=== PATIENT | female | born 1995 | race Caucasian/White ===

== ENCOUNTER 2017-02-18 16:25 | Emergency (ER) | payer OTHER ==
[~2017-02-18] VITALS: Ht 162.6 cm; Wt 78.0 kg
[2017-02-18] MEDS ORDERED: MECL25CH PO (16:37)
[2017-02-18] MEDS ORDERED: CELE20TA PO (16:37)
[2017-02-18] MEDS ORDERED: MECLIZINE 25 MG TABLET PO ONE (17:00)
[2017-02-18] MEDS ORDERED: NS 1,000 ML IV ONE (17:00)
[2017-02-18 17:28] LABS: METHADONE URINE NEGATIVE (NEGATIVE)
[2017-02-18 17:30] LABS: BASO % 0.5 % (0.0-1.0); EOS # 0.2 K/mm3 (0.0-0.50); EOS % 2.1 % (0.0-3.0); LARGE UNSTAINED CELL # 0.1 K/mm3 (0.0-0.4); LARGE UNSTAINED CELL % 1.4 % (0.0-4.0); LYMPH # 2.4 K/mm3 (1.5-6.5); LYMPH % 29.1 % (24.0-44.0); MEAN CORPUSCULAR HGB CONC 32.2 g/dl (32.0-36.5); MONO # 0.3 K/mm3 (0.0-0.8); MONO % 3.4 % (0.0-5.0); NEUTROPHILS # 5.3 K/mm3 (1.8-7.7); NEUTROPHILS % 63.5 % (36.0-66.0); PLATELET COUNT, AUTOMATED 303 k/mm3 (150-450); RED CELL DISTRIBUTION WIDTH 13.1 % (11.5-14.5); WHITE BLOOD COUNT 8.3 K/mm3 (4.0-10.0)
[2017-02-18 17:36] LABS: INR 0.94
[2017-02-18 17:44] LABS: CONTROL LINE HCG INT CTR LINE PRESENT
[2017-02-18 17:58] LABS: GLUCOSE, FASTING 79 MG/DL (70-105)
[2017-02-18 18:19] LABS: ANION GAP 8 MEQ/L (8-16); BLOOD UREA NITROGEN 10 MG/DL (7-18); CALCIUM LEVEL 9.1 MG/DL (8.5-10.1); CARBON DIOXIDE LEVEL 25 MEQ/L (21-32); CHLORIDE LEVEL 106 MEQ/L (98-107); POTASSIUM SERUM 4.2 MEQ/L (3.5-5.1); SODIUM LEVEL 139 MEQ/L (136-145)
--- NOTE | 2017-02-18 18:40 | REPUSA ---
CLINICAL HISTORY: Syncope TECHNIQUE: Head CT without contrast COMPARISON: No study for comparison is available at the time of interpretation. Brain: No intracranial hemorrhage, hydrocephalus, acute parenchymal edema or evident mass. Calvarium: Unremarkable. Sinuses (partially visualized): Clear. IMPRESSION: No acute intracranial findings.
[2017-02-18 18:58] VITALS: BP 126/74
--- NOTE | 2017-02-19 08:57 | ECGEPIP ---
Stationary ECG Study [facility] - ED Test Date: 2017-02-18 Pat Name: GUSTAVO BO Department: Room: - Gender: F Car Park Attendant: kiel : 1995 Requested By: JUVENAL GOLDSTEIN Order Number: [id number] Reading MD: Karon Monet Measurements Intervals [place] Rate: 68 P: 41 [place]: 125 QRS: 26 QRSD: 98 T: 21 QT: 376 QTc: 401 Interpretive Statements SINUS RHYTHM NO PRIOR FOR COMPARISON Electronically Signed On 02-19-2017 8:57:19 EDT by Karon Monet
== END 2017-02-18 19:01 | disposition home or self-care (01) ==
LOC: M ED 17:06
DX: R42 Dizziness and giddiness (principal); R11.0 Nausea; Z79.899 Other long term (current) drug therapy
CPT/HCPCS: 70450; 80048; 80306; 81001; 84443; 84703; 85025; 85610; 93005; 93041; 96360; 99284; G0480

== ENCOUNTER → 2018-08-25 | Outpatient (REF) | payer OTHER ==
[2018-08-25 18:32] LABS: FREE T4 0.98 NG/DL (0.76-1.46); PROLACTIN 40.6 NG/ML; TESTOSTERONE 28 NG/DL (14-76)
[2018-08-25 19:10] LABS: HIV 1&2 SCREEN CENTAUR NEGATIVE (NEGATIVE)
[2018-08-27 10:55] LABS: HEPATITIS B SURFACE ANTIGEN NEGATIVE (NEGATIVE)
[2018-08-27 11:24] LABS: HEPATITIS C VIRUS ABY INDEX 0.1 INDEX (<0.8)
[2018-08-28 14:13] LABS: DEHYDROEPIANDROSTERONE UNCONJ 408 ng/dL (31-701)
== END ==
LOC: M LABDRAW1 12:01
DX: N92.6 Irregular menstruation, unspecified (principal); Z11.3 Encounter for screening for infections with a predominantly sexual mode of transmission
CPT/HCPCS: 84146

== ENCOUNTER 2018-12-20 23:38 | Emergency (ER) | payer BC ==
[~2018-12-20] VITALS: Ht 165.1 cm; Wt 80.0 kg
[~2018-12-20 23:38] MED LIST: CELE20TA PO; MECL1CHW PO
[2018-12-20] MEDS ORDERED: DULO1CAP2 (23:45)
[2018-12-20] MEDS ORDERED: MELO15TA28 (23:45)
[2018-12-21] MEDS ORDERED: NUVAMIS2 PV (02:28)
[2018-12-21] MEDS ORDERED: NAPR-837 PO (06:35)
[2018-12-21] MEDS ORDERED: CLIN150C14 PO (06:35)
[2018-12-21] MEDS ORDERED: CLINDAMYCIN 150 MG CAP PO ONE (06:45)
[2018-12-21] MEDS ORDERED: NAPROXEN 250 MG TAB PO ONE (06:45)
[2018-12-21 06:52] VITALS: BP 118/55
== END 2018-12-21 06:54 | disposition home or self-care (01) ==
LOC: M ED 23:38
DX: L05.91 Pilonidal cyst without abscess (principal); F41.9 Anxiety disorder, unspecified; F32.9 Major depressive disorder, single episode, unspecified; Z79.3 Long term (current) use of hormonal contraceptives; Z79.899 Other long term (current) drug therapy

== ENCOUNTER → 2019-04-04 | Outpatient (REF) | payer BC ==
[~2019-04-04] MED LIST changes: +CLIN150C14 PO; +DULO1CAP5; +MELO15TA28; +NAPR-837 PO; +NUVAMIS2 PV
== END ==
LOC: M LABDRAW1 11:52
PROVIDERS: ATTEND Obstetrics & Gynecology
DX: N92.6 Irregular menstruation, unspecified (principal); E22.1 Hyperprolactinemia

== ENCOUNTER → 2019-07-20 | Outpatient (REF) | payer BC ==
[2019-07-20 20:38] LABS: CLOSTRIDIUM DIFFICILE PCR NEGATIVE (NEGATIVE)
== END ==
LOC: M LAB REF 17:11
PROVIDERS: ATTEND Internal Medicine Gastroenterology
DX: R19.7 Diarrhea, unspecified (principal)

== ENCOUNTER 2019-08-26 10:39 | Day surgery (SDC) | payer BC ==
[~2019-08-26] VITALS: Ht 165.1 cm; Wt 86.2 kg
[~2019-08-26 10:39] MED LIST changes: +AMOX875T PO; +JUNETAB PO; +NS 1,000 ML IV ONE
[2019-08-26] MEDS ORDERED: PROPOFOL 200 MG/20 ML VIAL As Ordered ONE ×2 (12:04→12:05)
[2019-08-26] MEDS ORDERED: LIDOCAINE 2% INJ 100 MG/5 ML SDV (FOR ANES.) As Ordered ONE (12:05)
--- NOTE | 2019-08-26 12:33 | ROOR ---
Patient Name: Georgette Morrow Procedure Date: 08/26/2019 11:50 AM Date of : 1995 Age: 24 Room: [facility] Gender: Female Note Status: Finalized Procedure: Upper GI endoscopy Indications: Globus sensation, Nausea with vomiting, Persistent vomiting of unknown cause Providers: Storm Wood MD Referring MD: BEATRIZ MACARIO Requesting Provider: Medicines: Monitored Anesthesia Care Complications: No immediate complications. Procedure: Pre-Anesthesia Assessment: - Prior to the procedure, a History and Physical was performed, and patient medications and allergies were reviewed. The patient is competent. The risks and benefits of the procedure and the sedation options and risks were discussed with the patient. All questions were answered and informed consent was obtained. Patient identification and proposed procedure were verified by the physician, the nurse and the anesthesiologist in the procedure room. Mental Status Examination: alert and oriented. Airway Examination: normal oropharyngeal airway and neck mobility. Respiratory Examination: clear to auscultation. CV Examination: normal. Prophylactic Antibiotics: The patient does not require prophylactic antibiotics. Prior Anticoagulants: The patient has taken no previous anticoagulant or antiplatelet agents. ASA Grade Assessment: II - A patient with mild systemic disease. After reviewing the risks and benefits, the patient was deemed in satisfactory condition to undergo the procedure. The anesthesia plan was to use monitored anesthesia care (MAC). Immediately prior to administration of medications, the patient was re-assessed for adequacy to receive sedatives. The heart rate, respiratory rate, oxygen saturations, blood pressure, adequacy of pulmonary ventilation, and response to care were monitored throughout the procedure. The physical status of the patient was re-assessed after the procedure. The Endoscope was introduced through the mouth, and advanced to the second part of duodenum. The upper GI endoscopy was accomplished without difficulty. The patient tolerated the procedure well. Findings: The examined esophagus was normal. Biopsies were obtained from the proximal and distal esophagus with cold forceps for histology of suspected eosinophilic esophagitis. Verification of patient identification for the specimen was done by the physician and nurse using the patient's name, date and medical record number. Estimated blood loss was minimal. Scattered minimal inflammation characterized by erythema and granularity was found in the gastric antrum. Biopsies were taken with a cold forceps for Helicobacter pylori testing. The duodenal bulb and second portion of the duodenum were normal. Biopsies for histology were taken with a cold forceps for evaluation of celiac disease. Impression: - Normal esophagus. Biopsied. - Gastritis. Biopsied. - Normal duodenal bulb and second portion of the duodenum. Biopsied. Recommendation: - Patient has a contact number available for emergencies. The signs and symptoms of potential delayed complications were discussed with the patient. Return to normal activities tomorrow. Written discharge instructions were provided to the patient. - Resume previous diet. - Continue present medications. - Await pathology results. - Telephone GI clinic for pathology results in 2 weeks. - Return to referring physician. Storm Wood MD Storm Wood MD 08/26/2019 12:32:28 PM Electronically signed by Storm Wood MD Number of Addenda: 0 Note Initiated On: 08/26/2019 11:50 AM Estimated Blood Loss: Estimated blood loss was minimal.
--- NOTE | 2019-08-26 12:47 | ROOR ---
Patient Name: Georgette Morrow Procedure Date: 08/26/2019 11:51 AM Date of : 1995 Age: 24 Room: [facility] Gender: Female Note Status: Finalized Procedure: Colonoscopy Indications: Change in bowel habits Providers: Storm Wood MD Referring MD: BEATRIZ MACARIO Requesting Provider: Medicines: Monitored Anesthesia Care Complications: No immediate complications. Procedure: Pre-Anesthesia Assessment: - Prior to the procedure, a History and Physical was performed, and patient medications and allergies were reviewed. The patient is competent. The risks and benefits of the procedure and the sedation options and risks were discussed with the patient. All questions were answered and informed consent was obtained. Patient identification and proposed procedure were verified by the physician, the nurse and the anesthesiologist in the procedure room. Mental Status Examination: alert and oriented. Airway Examination: normal oropharyngeal airway and neck mobility. Respiratory Examination: clear to auscultation. CV Examination: normal. Prophylactic Antibiotics: The patient does not require prophylactic antibiotics. Prior Anticoagulants: The patient has taken no previous anticoagulant or antiplatelet agents. ASA Grade Assessment: III - A patient with severe systemic disease. After reviewing the risks and benefits, the patient was deemed in satisfactory condition to undergo the procedure. The anesthesia plan was to use monitored anesthesia care (MAC). Immediately prior to administration of medications, the patient was re-assessed for adequacy to receive sedatives. The heart rate, respiratory rate, oxygen saturations, blood pressure, adequacy of pulmonary ventilation, and response to care were monitored throughout the procedure. The physical status of the patient was re-assessed after the procedure. The Colonoscope was introduced through the anus and advanced to the terminal ileum, with identification of the appendiceal orifice and IC valve. The colonoscopy was performed without difficulty. The patient tolerated the procedure well. The quality of the bowel preparation was good. The terminal ileum, ileocecal valve, appendiceal orifice, and rectum were photographed. Scope insertion time was 3 minutes. Scope withdrawal time was 8 minutes. The total duration of the procedure was 12 minutes. Findings: The perianal and digital rectal examinations were normal. The terminal ileum appeared normal. Scattered mild inflammation characterized by erythema, granularity and loss of vascularity was found in the recto-sigmoid colon. Biopsies for histology were taken with a cold forceps from the right colon, left colon and rectosigmoid colon for evaluation of microscopic colitis. Verification of patient identification for the specimen was done by the physician and nurse using the patient's name, date and medical record number. Estimated blood loss was minimal. Retroflexion in the rectum was not performed due to anatomy. No other significant abnormalities were identified in a careful examination of the remainder of the colon. Impression: - The examined portion of the ileum was normal. - Scattered mild inflammation was found in the recto-sigmoid colon. Biopsied. Recommendation: - Patient has a contact number available for emergencies. The signs and symptoms of potential delayed complications were discussed with the patient. Return to normal activities tomorrow. Written discharge instructions were provided to the patient. - Resume previous diet. - Continue present medications. - Await pathology results. - Repeat colonoscopy at age 52 for screening purposes. - Telephone GI clinic for pathology results in 2 weeks. - Return to primary care physician. Storm Wood MD Storm Wood MD 08/26/2019 12:47:10 PM Electronically signed by Storm Wood MD Number of Addenda: 0 Note Initiated On: 08/26/2019 11:51 AM Estimated Blood Loss: Estimated blood loss was minimal.
[2019-08-26 13:08] VITALS: BP 130/78
== END 2019-08-26 13:07 | disposition home or self-care (01) ==
LOC: M OPP 10:39
PROVIDERS: ATTEND Internal Medicine Gastroenterology
DX: K52.9 Noninfective gastroenteritis and colitis, unspecified (principal); R19.4 Change in bowel habit; K29.70 Gastritis, unspecified, without bleeding; R11.2 Nausea with vomiting, unspecified; R11.10 Vomiting, unspecified; Z79.899 Other long term (current) drug therapy

== ENCOUNTER 2020-04-17 02:49 | Emergency (ER) | payer BC ==
[~2020-04-17 02:49] MED LIST changes: -NS 1,000 ML IV ONE
[2020-04-17] MEDS ORDERED: HYOSCYAMINE SULFATE 0.125 MG SUBL TABLET ONE (07:00)
[2020-05-26 11:35] LABS: BASO # 0.1 10^3/uL (0.0-0.2); BASO % 0.8 % (0.0-1.0); EOS # 0.3 10^3/uL (0.0-0.5); EOS % 4.2 % (0.0-3.0); HEMOGLOBIN 11.9 g/dl (12.0-15.5); LYMPH # 2.5 10^3/uL (1.5-5.0); LYMPH % 34.1 % (24.0-44.0); MEAN CORPUSCULAR HEMOGLOBIN 26.2 pg (27.0-33.0); MEAN CORPUSCULAR HGB CONC 31.3 g/dl (32.0-36.5); MEAN CORPUSCULAR VOLUME 83.5 fl (80.0-96.0); MONO # 0.4 10^3/uL (0.0-0.8); MONO % 5.4 % (0.0-5.0); NEUTROPHILS # 4.1 10^3/uL (1.5-8.5); PLATELET COUNT, AUTOMATED 389 10^3/uL (150-450); RED BLOOD COUNT 4.55 10^6/uL (4.00-5.40); WHITE BLOOD COUNT 7.4 10^3/uL (4.0-10.0)
[2020-07-01 08:27] LABS: ALBUMIN 3.9 GM/DL (3.2-5.2); ALT/SGPT 24 U/L (12-78); BILIRUBIN,DIRECT < 0.1 MG/DL (0.0-0.2); BILIRUBIN,TOTAL 0.1 MG/DL (0.2-1.0); BLOOD UREA NITROGEN 8 MG/DL (7-18); CARBON DIOXIDE LEVEL 24 MEQ/L (21-32); CHLORIDE LEVEL 109 MEQ/L (98-107); CREATININE FOR GFR 0.86 MG/DL (0.55-1.30); GLOMERULAR FILTRATION RATE > 60.0 (>60); GLUCOSE, FASTING 97 MG/DL (70-100); HCG, SERUM QUALITATIVE NEGATIVE (NEGATIVE); LIPASE 79 U/L (73-393); SODIUM LEVEL 141 MEQ/L (136-145)
== END 2020-04-17 08:10 | disposition home or self-care (01) ==
LOC: M ED 02:49
DX: K80.70 Calculus of gallbladder and bile duct without cholecystitis without obstruction (principal); Z79.899 Other long term (current) drug therapy

== ENCOUNTER 2020-05-14 09:31 | Day surgery (SDC) | payer BC ==
[~2020-05-14] VITALS: Ht 165.1 cm; Wt 96.6 kg
[~2020-05-14 09:31] MED LIST changes: +LIDOCAINE 1% MDV 20ML VIAL SQ PRN
[2020-05-14] MEDS ORDERED: HYOSPOW (10:05)
[2020-05-14] MEDS ORDERED: LR 1,000 ML IV ONE (11:00)
[2020-05-14] MEDS ORDERED: dexameTHASONE 4 MG/ML 1ML VIAL (J1100 PER 1MG) As Ordered ONE (11:21)
[2020-05-14] MEDS ORDERED: ACETAMINOPHEN 1000MG 100ML IV BTL (OFIRMEV) (J0131 PER 10MG) As Ordered ONE (11:21)
[2020-05-14] MEDS ORDERED: ROCURONIUM BROMIDE 50 MG/5 ML VIAL As Ordered ONE ×2 (11:21→12:24)
[2020-05-14] MEDS ORDERED: KETOROLAC 60MG 2ML VIAL As Ordered ONE (11:21)
[2020-05-14] MEDS ORDERED: ONDANSETRON 4MG/2ML VIAL As Ordered ONE ×2 (11:21→13:33)
[2020-05-14] MEDS ORDERED: LIDOCAINE 2% 100MG/5ML SDV (FOR ANES.) As Ordered ONE (11:21)
[2020-05-14] MEDS ORDERED: propofoL 200 MG/20 ML VIAL As Ordered ONE ×2 (11:21→12:09)
[2020-05-14] MEDS ORDERED: MIDAZOLAM INJ 2MG/2ML VIAL (J2250 PER 1MG) As Ordered ONE (11:22)
[2020-05-14] MEDS ORDERED: fentaNYL 100 MCG/2 ML INJECTION (J3010) As Ordered ONE (11:22)
[2020-05-14] MEDS ORDERED: BUPIVACAINE/EPIN 0.25% 30 ML VIAL As Ordered ONE (11:27)
[2020-05-14] MEDS ORDERED: SUGAMMADEX SODIUM 500 MG/5 ML VIAL (BRIDION) As Ordered ONE (12:24)
[2020-05-14] MEDS: ONDANSETRON 4MG/2ML VIAL IV PRN ×2 (13:35→13:45)
[2020-05-14] MEDS ORDERED: fentaNYL 100 MCG/2 ML INJECTION (J3010) IV PRN (13:45)
[2020-05-14] MEDS ORDERED: LR 1,000 ML IV SCH (13:45)
[2020-05-14] MEDS ORDERED: NORCO, ANEXSIA 5/325MG TABLET (HYDROcodone/ACETAMINOPHEN) PO PRN ×2 (13:45→14:00)
[2020-05-14] MEDS: oxyCODONE 5MG TAB PO PRN ×2 (13:46→14:24)
[2020-05-14] MEDS: HYDROMORPHONE HCL 0.5 MG/ 0.5 ML SYRINGE (J1170 PER 1) IV PRN ×2 (14:05→14:11)
[2020-05-14 15:30] VITALS: BP 135/66
--- NOTE | 2020-06-28 08:26 | RO ---
DATE OF OPERATION: 05/14/2020 PREOPERATIVE DIAGNOSIS: Symptomatic cholelithiasis. POSTOPERATIVE DIAGNOSIS: Symptomatic cholelithiasis. PROCEDURE: Robotic cholecystectomy. SURGEON: Maxi Hansen DO POWER SEWING MACHINE OPERATOR: Margret Bhatia ANESTHESIA: General. ESTIMATED BLOOD LOSS: 5. COMPLICATIONS: None. INDICATIONS FOR PROCEDURE: The patient is a 25-year-old female who presents with right upper quadrant pain and found to have symptomatic cholelithiasis. Recommendation was to proceed with a robotic cholecystectomy. Risks and benefits of the procedure not limited to but including bleeding, infection, hernia formation, damage to surrounding structures and need for further surgery were discussed in detail with the patient. Informed consent was obtained and procedure was planned. DESCRIPTION OF PROCEDURE: The patient was brought back to operating room 7. After sufficient sedation, the abdomen was sterilely prepped and draped. Next, timeout was done to confirm proper patient and proper procedure. Following that, an 8 mm incision was made in the left upper quadrant, and the Veress needle was inserted. The abdomen was insufflated to 15 mmHg. Next the Veress needle was removed. An 8-mm Optiview port was used to gain access to the abdomen. Once the abdomen was entered, three more ports were placed across the right upper quadrant. Next, the robot was connected to the ports from the console, and the fundus of the gallbladder was elevated up towards the right shoulder. The cystic duct and cystic artery were carefully dissected free using a combination of blunt and sharp dissection. Once they were both clearly identified, they were both doubly clipped and cut. The gallbladder was then dissected free from the gallbladder fossa using electrocautery. Once the gallbladder was removed, it was placed inside of a 5-mm Endo Catch bag and brought out through the right lateral port site. Once the gallbladder was out, the fascia and the peritoneum at the right lateral port side was closed intraperitoneally using a 2-0 V-Loc suture. Once that was completed, the abdomen was desufflated. Skin incisions were closed with 4-0 Vicryl subcuticular sutures. The abdomen was cleaned and dried. Steri- Strips, 4x4 and tape were applied. CHARITY
== END 2020-05-14 15:36 | disposition home or self-care (01) ==
LOC: M SDC 09:31
PROVIDERS: ATTEND Surgery
DX: K80.10 Calculus of gallbladder with chronic cholecystitis without obstruction (principal); F41.9 Anxiety disorder, unspecified; F32.9 Major depressive disorder, single episode, unspecified
CPT/HCPCS: 47562; 81025; 88304; J0131; J1100; J1170; J1885; J2250; J2405; J3010

== ENCOUNTER → 2021-12-26 | Outpatient (REF) | payer BC ==
[~2021-12-26] MED LIST changes: -CLIN150C14 PO; +CLIN150C17 PO; +HYOSPOW; -LIDOCAINE 1% MDV 20ML VIAL SQ PRN
== END ==
LOC: M LAB REF 11:55
PROVIDERS: ATTEND Physician Assistant
DX: R05.9 Cough, unspecified (principal); R50.9 Fever, unspecified

== ENCOUNTER 2022-03-19 15:59 | Emergency (ER) | payer BC, MEDICAID ==
[~2022-03-19] VITALS: Ht 165.1 cm; Wt 93.2 kg
[2022-03-19] MEDS ORDERED: DULO1CAP5 (16:17)
[2022-03-19] MEDS ORDERED: CEPH500C PO (16:17)
[2022-03-19] MEDS ORDERED: BUTACAP78 PO (16:17)
[2022-03-19] MEDS ORDERED: ONDANSETRON 4MG ORAL DISINTEGRATING TAB PO ONE (17:25)
[2022-03-19] MEDS ORDERED: AUGMENTIN 875 MG TAB PO ONE (17:25)
[2022-03-19] MEDS ORDERED: MORPHINE 4 MG/ML 1ML VIAL/SYRINGE IM ONE (17:25)
[2022-03-19] MEDS ORDERED: LIDOCAINE 1% MDV 20ML VIAL SC ONE (17:25)
[2022-03-19] MEDS ORDERED: AMOX875T2 PO (18:10)
[2022-03-19] MEDS ORDERED: HYDR-3713 PO (18:10)
[2022-03-19 18:25] VITALS: BP 133/78
== END 2022-03-19 18:28 | disposition home or self-care (01) ==
LOC: M ED 15:59
DX: L05.91 Pilonidal cyst without abscess (principal)
CPT/HCPCS: 10060; 87070; 87077; 87186; 96372; 99284; J2270

== ENCOUNTER → 2022-04-13 | Outpatient (CLI) | payer OTHER ==
[~2022-04-13] MED LIST changes: +AMOX875T2 PO; +ASPI81CH33 PO; +BUTACAP78 PO; +CEPH500C PO; +HYDR-3713 PO
== END ==
LOC: M LABSMTC 10:07
PROVIDERS: ATTEND Anesthesiology
DX: Z01.812 Encounter for preprocedural laboratory examination (principal); Z20.822 Contact with and (suspected) exposure to COVID-19

== ENCOUNTER 2022-04-18 07:01 | Day surgery (SDC) | payer MEDICAID, OTHER ==
[~2022-04-18] VITALS: Ht 165.1 cm; Wt 93.4 kg
[2022-04-18] MEDS ORDERED: LR 1,000 ML IV SCH (07:15)
[2022-04-18] MEDS ORDERED: fentaNYL 100 MCG/2 ML INJECTION As Ordered ONE (07:18)
[2022-04-18] MEDS ORDERED: KETOROLAC 60MG 2ML VIAL As Ordered ONE (07:18)
[2022-04-18] MEDS ORDERED: MIDAZOLAM INJ 2MG/2ML VIAL (J2250 PER 1MG) As Ordered ONE (07:18)
[2022-04-18] MEDS ORDERED: dexameTHASONE 4 MG/ML 1ML VIAL (J1100 PER 1MG) As Ordered ONE (07:18)
[2022-04-18] MEDS ORDERED: LIDOCAINE 2% 100MG/5ML SDV (FOR ANES.) As Ordered ONE (07:18)
[2022-04-18] MEDS ORDERED: ONDANSETRON 4MG 2ML VIAL As Ordered ONE (07:18)
[2022-04-18] MEDS ORDERED: EPINEPHrine INJ 1 MG/ML 1ML AMP As Ordered ONE (08:55)
[2022-04-18] MEDS ORDERED: propofoL 200 MG/20 ML VIAL As Ordered ONE (09:31)
[2022-04-18] MEDS ORDERED: fentaNYL 100 MCG/2 ML INJECTION IV PRN (10:00)
[2022-04-18] MEDS ORDERED: ONDANSETRON 4MG 2ML VIAL IV PRN (10:00)
[2022-04-18] MEDS ORDERED: MEPERIDINE INJ 25 MG/ML VIAL (J2175) IV PRN (10:00)
[2022-04-18] MEDS ORDERED: NS 1,000 ML IV SCH (10:00)
[2022-04-18] MEDS ORDERED: oxyCODONE 5MG TAB PO PRN (10:00)
[2022-04-18] MEDS ORDERED: NORCO, ANEXSIA 5/325MG TABLET (HYDROcodone/ACETAMINOPHEN) PO PRN (10:40)
[2022-04-18 11:55] VITALS: BP 116/58
== END 2022-04-18 11:55 | disposition home or self-care (01) ==
LOC: M SDC 07:01
PROVIDERS: ATTEND Surgery
DX: L05.91 Pilonidal cyst without abscess (principal); F41.9 Anxiety disorder, unspecified; F32.A Depression, unspecified; Z79.899 Other long term (current) drug therapy; Z79.82 Long term (current) use of aspirin; Z79.1 Long term (current) use of non-steroidal anti-inflammatories (NSAID); Z79.891 Long term (current) use of opiate analgesic; Z87.891 Personal history of nicotine dependence
CPT/HCPCS: 11770; 81025; 88304; J0171; J1100; J1885; J2250; J2405; J3010

== ENCOUNTER → 2024-09-30 | Outpatient (REF) | payer OTHER, MEDICAID ==
[~2024-09-30] MED LIST changes: +ETON1VAG7 PV; +IBUP200C25 PO; -NUVAMIS2 PV
== END ==
LOC: M LAB REF 12:25
PROVIDERS: ATTEND Internal Medicine
DX: Z11.4 Encounter for screening for human immunodeficiency virus [HIV] (principal)